=== PATIENT | female | born 1995 | race Hispanic/Latino ===

== ENCOUNTER 2018-03-16 15:54 | Inpatient (IN) | payer BC ==
[~2018-03-16] VITALS: Ht 154.9 cm; Wt 58.5 kg
[2018-03-16] MEDS ORDERED: SODIUM CHLORIDE 0.9% 1000ML 1,000 ML IV ONE (16:35)
[2018-03-16] MEDS ORDERED: KETOROLAC TROMETHAMINE 30MG/ML ONE (16:35)
[2018-03-16] MEDS ORDERED: ONDANSETRON HCL MDV 20ML 2 MG/ML VIAL ONE ×2 (16:35→22:13)
[2018-03-16 16:42] LABS: BASOPHILS % (AUTO) 0.7 % (0.0-5.0); EOSINOPHILS % (AUTO) 0.9 % (0.0-8.0); HEMATOCRIT 37.7 % (36-48); LYMPHOCYTES % (AUTO) 31.5 % (21.0-51.0); MEAN CORPUSCULAR HEMOGLOBIN 26.6 pg (27.0-33.0); MEAN CORPUSCULAR HGB CONC 32.9 g/dL (32.0-36.0); MEAN CORPUSCULAR VOLUME 80.8 fL (79-99); MONOCYTES % (AUTO) 5.9 % (3.0-13.0); PLATELET COUNT (AUTO) 196 K/uL (130-400); RED BLOOD CELL COUNT(AUTO) 4.66 MIL/uL (4.00-5.50); RED CELL DISTRIBUTION WIDTH 15.8 % (11.0-15.5); WHITE BLOOD COUNT (AUTO) 5.8 K/uL (4.8-10.8)
[2018-03-16 16:43] LABS: APPEARANCE,URINE Clear (CLEAR); BILIRUBIN,URINE Negative (NEGATIVE); COLOR,URINE Yellow (YELLOW); GLUCOSE, URINE (UA) Negative (NEGATIVE); HCG,QUAL RESULT NEGATIVE (NEGATIVE); KETONES,URINE 15 mg/dL (NEGATIVE); LEUKOCYTE ESTERASE ,URINE Negative (NEGATIVE); NITRATE,URINE Negative (NEGATIVE); OCCULT BLOOD,URINE Negative (NEGATIVE); PH,URINE 6.5 (5.0-8.0); PROTEIN,URINE Negative (NEGATIVE)
[2018-03-16 16:49] LABS: AMPHET/METH SCREEN,URINE NEGATIVE (NEGATIVE); BARBITURATE SCREEN, URINE NEGATIVE (NEGATIVE); BENZODIAZEPINES SCREEN,URINE NEGATIVE (NEGATIVE); CANNABINOID SCREEN,URINE POSITIVE (NEGATIVE); COCAINE SCREEN,URINE NEGATIVE (NEGATIVE); OPIATE SCREEN,URINE NEGATIVE (NEGATIVE); PHENCYCLIDINE SCREEN,URINE NEGATIVE (NEGATIVE)
[2018-03-16] MEDS ORDERED: CEFTRIAXONE SODIUM 1 GM ONE (17:07)
[2018-03-16 17:15] LABS: CREATININE 0.8 mg/dL (0.5-1.5); POTASSIUM 3.6 mmol/L (3.5-5.1)
[2018-03-16 17:20] LABS: ALBUMIN 4.2 g/dL (3.5-5.0); BILIRUBIN,TOTAL 0.5 mg/dL (0.2-1.0); TOTAL PROTEIN, SERUM 8.1 g/dL (6.0-8.3)
[2018-03-16] MEDS ORDERED: HYDROMORPHONE HCL 0.5 MG/0.5 ML ML ONE ×2 (20:16→22:14)
[2018-03-16 21:40] VITALS: BP 126/76
[2018-03-16] MEDS ORDERED: DICY20 PO (23:26)
[2018-03-16] MEDS ORDERED: PANT40TA PO (23:26)
[2018-03-16] MEDS ORDERED: METO5 PO (23:26)
[2018-03-16] MEDS ORDERED: ONDA4TAB4 PO (23:26)
[2018-03-17] VITALS (7 sets, daily range): BP systolic 108–122; BP diastolic 59–85
[2018-03-17] MEDS ORDERED: PHARMACY COMMUNICATION MISC SCH (02:00)
[2018-03-17] MEDS ORDERED: HYDROMORPHONE HCL 0.5 MG/0.5 ML ML IVP PRN (03:45)
[2018-03-17] MEDS: SODIUM CHLORIDE 0.9% 1000ML 1,000 ML IV SCH ×3 (03:48→19:59)
[2018-03-17] MEDS ORDERED: METRONIDAZOLE 500MG/100ML BAG 100 ML ONE (03:50)
[2018-03-17] MEDS: METRONIDAZOLE 500MG/100ML BAG 100 ML IV SCH ×3 (03:52→20:45)
[2018-03-17 05:26] LABS: HEMATOCRIT 30.9 % (36-48); MEAN CORPUSCULAR VOLUME 80.2 fL (79-99); NUCLEATED RED BLOOD CELLS 0.1 % (0.0-0.19); PLATELET COUNT (AUTO) 171 K/uL (130-400); RED BLOOD CELL COUNT(AUTO) 3.85 MIL/uL (4.00-5.50); RED CELL DISTRIBUTION WIDTH 15.7 % (11.0-15.5); WHITE BLOOD COUNT (AUTO) 4.4 K/uL (4.8-10.8)
[2018-03-17 05:44] LABS: ALBUMIN 3.3 g/dL (3.5-5.0); BILIRUBIN,TOTAL 0.4 mg/dL (0.2-1.0); CREATININE 0.7 mg/dL (0.5-1.5); POTASSIUM 3.7 mmol/L (3.5-5.1); TOTAL PROTEIN, SERUM 6.3 g/dL (6.0-8.3)
[2018-03-17] MEDS: ONDANSETRON HCL MDV 20ML 2 MG/ML VIAL IVP PRN ×2 (06:06→19:22)
[2018-03-17] MEDS: METOCLOPRAMIDE 5 MG TABLET PO SCH ×2 (08:45→08:50)
[2018-03-17] MEDS: PANTOPRAZOLE SODIUM 40 MG TABLET.DR PO SCH (08:45)
[2018-03-17] MEDS: MEPERIDINE HCL/PF 25 MG/0.5 ML AMPUL IVP PRN ×2 (09:11→11:25)
[2018-03-17] MEDS ORDERED: CEFTRIAXONE 1GM/D5W 50ML 50 ML IV SCH (10:30)
[2018-03-17] MEDS: LORAZEPAM 2 MG/ML 1 ML VIAL IVP PRN ×2 (10:36→19:58)
[2018-03-17 10:45] LABS: AMYLASE 42 U/L (25-115); LIPASE 58 U/L (114-286)
[2018-03-17] MEDS ORDERED: DOCUSATE SODIUM 100 MG CAP PO PRN (10:45)
[2018-03-17] MEDS ORDERED: LACTULOSE 20 GM/30 ML UDCUP PO PRN (10:45)
[2018-03-17] MEDS: CEFTRIAXONE SODIUM 1 GM IVP SCH (11:21)
[2018-03-17] MEDS ORDERED: IOPAMIDOL-370 75 ML VIAL IV ONE (11:33)
[2018-03-17] MEDS ORDERED: MEPERIDINE-PF 25 MG/ML SYG ONE (19:18)
[2018-03-18] MEDS: LORAZEPAM 2 MG/ML 1 ML VIAL IVP PRN (02:09)
[2018-03-18 04:00] VITALS: BP 100/58
[2018-03-18 05:04] LABS: HEMATOCRIT 30.6 % (36-48); MEAN CORPUSCULAR HEMOGLOBIN 26.8 pg (27.0-33.0); MEAN CORPUSCULAR HGB CONC 33.2 g/dL (32.0-36.0); MEAN CORPUSCULAR VOLUME 80.6 fL (79-99); NUCLEATED RED BLOOD CELLS 0.1 % (0.0-0.19); PLATELET COUNT (AUTO) 154 K/uL (130-400); RED CELL DISTRIBUTION WIDTH 15.6 % (11.0-15.5); WHITE BLOOD COUNT (AUTO) 3.8 K/uL (4.8-10.8)
[2018-03-18 05:12] LABS: CREATININE 0.7 mg/dL (0.5-1.5); POTASSIUM 3.8 mmol/L (3.5-5.1)
[2018-03-18] MEDS: METRONIDAZOLE 500MG/100ML BAG 100 ML IV SCH (05:33)
[2018-03-18] MEDS: SODIUM CHLORIDE 0.9% 1000ML 1,000 ML IV SCH ×3 (05:34→19:45)
[2018-03-18] MEDS ORDERED: DIATR MEGLU/DIATRIZOATE SODIUM 30 ML BOTTLE ONE (06:53)
[2018-03-18] MEDS: ONDANSETRON HCL MDV 20ML 2 MG/ML VIAL IVP PRN ×2 (07:15→19:36)
[2018-03-18 08:00] VITALS: BP 109/63
[2018-03-18] MEDS: PANTOPRAZOLE SODIUM 40 MG TABLET.DR PO SCH (08:42)
[2018-03-18] MEDS: CEFTRIAXONE SODIUM 1 GM IVP SCH (10:14)
[2018-03-18 11:56] VITALS: BP 101/69
[2018-03-18] MEDS ORDERED: CALDOLOR 800MG+NS 250ML 250 ML IV SCH (14:30)
[2018-03-18 16:00] VITALS: BP 104/54
[2018-03-18] MEDS: CALDOLOR 800MG+NS 250ML 250 ML IV PRN (18:00)
[2018-03-18 20:24] VITALS: BP 117/70
[2018-03-19] VITALS (7 sets, daily range): BP systolic 104–131; BP diastolic 61–80
[2018-03-19] MEDS: SODIUM CHLORIDE 0.9% 1000ML 1,000 ML IV SCH ×3 (04:15→22:16)
[2018-03-19] MEDS: CALDOLOR 800MG+NS 250ML 250 ML IV PRN (05:08)
[2018-03-19 06:00] LABS: HEMATOCRIT 32.4 % (36-48); MEAN CORPUSCULAR HEMOGLOBIN 28.2 pg (27.0-33.0); MEAN CORPUSCULAR VOLUME 80.5 fL (79-99); NUCLEATED RED BLOOD CELLS 0.1 % (0.0-0.19); PLATELET COUNT (AUTO) 191 K/uL (130-400); RED BLOOD CELL COUNT(AUTO) 4.03 MIL/uL (4.00-5.50); RED CELL DISTRIBUTION WIDTH 15.4 % (11.0-15.5)
[2018-03-19 06:15] LABS: CREATININE 0.7 mg/dL (0.5-1.5); POTASSIUM 3.7 mmol/L (3.5-5.1)
[2018-03-19] MEDS: PANTOPRAZOLE SODIUM 40 MG TABLET.DR PO SCH (08:46)
[2018-03-19] MEDS: ONDANSETRON HCL MDV 20ML 2 MG/ML VIAL IVP PRN ×2 (11:59→17:06)
[2018-03-19] MEDS: ACETAMINOPHEN 325 MG TAB PO PRN ×3 (11:59→22:16)
[2018-03-19] MEDS: DICYCLOMINE HCL 20 MG TAB PO PRN (17:12)
[2018-03-20] VITALS (27 sets, daily range): BP systolic 109–147; BP diastolic 47–85
[2018-03-20] MEDS: DICYCLOMINE HCL 20 MG TAB PO PRN ×2 (00:45→20:22)
[2018-03-20] MEDS: SODIUM CHLORIDE 0.9% 1000ML 1,000 ML IV SCH ×2 (03:13→06:59)
[2018-03-20] MEDS: PANTOPRAZOLE SODIUM 40 MG TABLET.DR PO SCH (09:00)
[2018-03-20] MEDS: ONDANSETRON HCL MDV 20ML 2 MG/ML VIAL IVP PRN ×3 (11:03→22:58)
[2018-03-20] MEDS ORDERED: CEFAZOLIN SODIUM 1 GM VIAL ONE (13:28)
[2018-03-20] MEDS ORDERED: GLYCOPYRROLATE 0.2 MG/ML 5 ML VIAL ONE (13:39)
[2018-03-20] MEDS ORDERED: LIDOCAINE PF 2% 5ML ABBOJECT ONE (13:39)
[2018-03-20] MEDS ORDERED: DEXAMETHASONE SOD PHOSPHATE 10MG/ML 1ML VIAL ONE (13:39)
[2018-03-20] MEDS ORDERED: PROPOFOL 10 MG/ML 20ML VIAL IV ONE (13:40)
[2018-03-20] MEDS ORDERED: FENTANYL CITRATE PF 50 MCG/1 ML 2ML VIAL ONE ×2 (13:40→14:17)
[2018-03-20] MEDS ORDERED: MIDAZOLAM HCL 1 MG/ML 2ML VIAL ONE (13:40)
[2018-03-20] MEDS ORDERED: EPINEPHRINE 1 MG/ML AMPULE ONE (15:00)
[2018-03-20] MEDS ORDERED: BUPIVACAINE/PF 0.5% 30ML VIAL ONE (15:00)
[2018-03-20] MEDS ORDERED: ESMOLOL HCL 10 MG/ML 10 ML VIAL ONE (15:50)
[2018-03-20] MEDS ORDERED: MEPERIDINE-PF 50 MG/ML SYG ONE ×2 (15:51→16:05)
[2018-03-20] MEDS ORDERED: LACTATED RINGERS 1000ML 1,000 ML IV ONE (17:16)
[2018-03-20] MEDS: LACTATED RINGERS 1000ML 1,000 ML IV SCH (17:20)
[2018-03-20] MEDS ORDERED: ACETAMINOPHEN 325 MG TAB PO PRN (17:30)
[2018-03-20] MEDS ORDERED: PHARMACY COMMUNICATION MISC SCH (18:00)
[2018-03-20] MEDS ORDERED: PROMETHAZINE HCL 25 MG/ML 1ML AMPULE IM ONE (18:10)
[2018-03-21] MEDS: TRAMADOL HCL 50 MG TABLET PO PRN (01:04)
[2018-03-21 03:35] VITALS: BP 117/72
[2018-03-21 07:47] VITALS: BP 110/82
[2018-03-21] MEDS: LACTATED RINGERS 1000ML 1,000 ML IV SCH ×2 (08:23→17:30)
[2018-03-21] MEDS: PANTOPRAZOLE SODIUM 40 MG TABLET.DR PO SCH (08:24)
[2018-03-21] MEDS: ACETAMINOPHEN 325 MG TAB PO PRN (08:25)
[2018-03-21] MEDS: DICYCLOMINE HCL 20 MG TAB PO PRN (08:25)
[2018-03-21] MEDS: ONDANSETRON HCL MDV 20ML 2 MG/ML VIAL IVP PRN ×2 (08:26→21:49)
[2018-03-21] MEDS ORDERED: PROCHLORPERAZINE EDISYLATE 10 MG/2 ML VIAL IV SCH (10:45)
[2018-03-21 11:20] VITALS: BP 127/87
[2018-03-21 15:45] VITALS: BP 122/65
[2018-03-21 19:35] VITALS: BP 91/56
[2018-03-21 20:33] VITALS: BP 140/87
[2018-03-21] MEDS ORDERED: KETOROLAC TROMETHAMINE 15MG/ML IV PRN (21:45)
[2018-03-21] MEDS: HYDROXYZINE HCL 25 MG TABLET PO SCH (23:07)
[2018-03-22 01:00] VITALS: BP 98/62
[2018-03-22] MEDS: DICYCLOMINE HCL 20 MG TAB PO PRN (02:42)
[2018-03-22 04:15] VITALS: BP 122/66
[2018-03-22] MEDS: ONDANSETRON HCL MDV 20ML 2 MG/ML VIAL IVP PRN ×2 (05:53→11:45)
[2018-03-22 08:00] VITALS: BP 128/78
[2018-03-22] MEDS: PROCHLORPERAZINE EDISYLATE 10 MG/2 ML VIAL IV PRN ×2 (08:12→20:24)
[2018-03-22] MEDS: LACTATED RINGERS 1000ML 1,000 ML IV SCH (08:18)
[2018-03-22 09:08] LABS: HEMATOCRIT 32.1 % (36-48); MEAN CORPUSCULAR VOLUME 79.6 fL (79-99); PLATELET COUNT (AUTO) 211 K/uL (130-400); RED BLOOD CELL COUNT(AUTO) 4.03 MIL/uL (4.00-5.50); RED CELL DISTRIBUTION WIDTH 16.2 % (11.0-15.5); WHITE BLOOD COUNT (AUTO) 7.8 K/uL (4.8-10.8)
[2018-03-22 09:25] LABS: CREATININE 0.7 mg/dL (0.5-1.5); POTASSIUM 3.3 mmol/L (3.5-5.1)
[2018-03-22] MEDS: PAROXETINE HCL 20 MG TABLET PO SCH (11:26)
[2018-03-22] MEDS: DULOXETINE HCL 30 MG CAP PO SCH ×2 (11:26→20:25)
[2018-03-22] MEDS: PANTOPRAZOLE SODIUM 40 MG TABLET.DR PO SCH (11:26)
[2018-03-22] MEDS: HYDROXYZINE HCL 25 MG TABLET PO SCH ×3 (11:27→20:25)
[2018-03-22 12:00] VITALS: BP 131/77
[2018-03-22] MEDS: TRAMADOL HCL 50 MG TABLET PO PRN ×2 (14:53→20:25)
[2018-03-22 16:00] VITALS: BP 153/82
[2018-03-22 20:30] VITALS: BP 114/71
[2018-03-23 04:03] VITALS: BP 113/70
[2018-03-23 04:21] LABS: HEMATOCRIT 29.8 % (36-48); MEAN CORPUSCULAR HEMOGLOBIN 28.1 pg (27.0-33.0); MEAN CORPUSCULAR HGB CONC 35.6 g/dL (32.0-36.0); PLATELET COUNT (AUTO) 218 K/uL (130-400); RED BLOOD CELL COUNT(AUTO) 3.77 MIL/uL (4.00-5.50); RED CELL DISTRIBUTION WIDTH 16.3 % (11.0-15.5); WHITE BLOOD COUNT (AUTO) 7.4 K/uL (4.8-10.8)
[2018-03-23 04:34] LABS: CREATININE 0.6 mg/dL (0.5-1.5); POTASSIUM 3.2 mmol/L (3.5-5.1)
[2018-03-23] MEDS: TRAMADOL HCL 50 MG TABLET PO PRN (06:06)
[2018-03-23] MEDS: PROCHLORPERAZINE EDISYLATE 10 MG/2 ML VIAL IV PRN ×2 (06:06→11:54)
[2018-03-23 07:30] VITALS: BP 105/69
[2018-03-23] MEDS: HYDROXYZINE HCL 25 MG TABLET PO SCH ×3 (09:22→22:06)
[2018-03-23] MEDS: DULOXETINE HCL 30 MG CAP PO SCH (09:22)
[2018-03-23] MEDS: PANTOPRAZOLE SODIUM 40 MG TABLET.DR PO SCH (09:22)
[2018-03-23] MEDS: PAROXETINE HCL 20 MG TABLET PO SCH (09:22)
[2018-03-23 11:00] VITALS: BP 134/93
[2018-03-23] MEDS: ONDANSETRON HCL MDV 20ML 2 MG/ML VIAL IVP PRN (12:51)
[2018-03-23] MEDS ORDERED: GADOBENATE DIMEGLUMINE 10 ML IV ONE (13:38)
[2018-03-23] MEDS: DICYCLOMINE HCL 20 MG TAB PO PRN (14:30)
[2018-03-23] MEDS: DEXAMETHASONE 4 MG TAB PO SCH ×2 (14:30→22:06)
[2018-03-23 16:00] VITALS: BP 139/74
[2018-03-23] MEDS ORDERED: PHARMACY COMMUNICATION MISC SCH (16:30)
[2018-03-23 19:00] VITALS: BP 137/89
[2018-03-23] MEDS ORDERED: ZOLPIDEM TARTRATE 5 MG TAB PO PRN (20:00)
[2018-03-24] MEDS: LACTATED RINGERS 1000ML 1,000 ML IV SCH ×2 (01:31→10:44)
[2018-03-24 04:00] VITALS: BP 118/70
[2018-03-24] MEDS: DEXAMETHASONE 4 MG TAB PO SCH ×3 (05:29→22:14)
[2018-03-24 08:10] VITALS: BP 117/67
[2018-03-24] MEDS: PANTOPRAZOLE SODIUM 40 MG TABLET.DR PO SCH (09:24)
[2018-03-24] MEDS: HYDROXYZINE HCL 25 MG TABLET PO SCH ×3 (09:25→20:57)
[2018-03-24] MEDS: PAROXETINE HCL 20 MG TABLET PO SCH (09:25)
[2018-03-24] MEDS ORDERED: MAGNESIUM HYDROXIDE 30 ML/UDCUP PO SCH (10:15)
[2018-03-24] MEDS ORDERED: LACTULOSE 20 GM/30 ML UDCUP PO SCH (10:15)
[2018-03-24] MEDS ORDERED: MAG HYDROX/AL HYDROX/SIMETH ES 30 ML SUSP UDCUP ONE (10:16)
[2018-03-24 12:05] VITALS: BP 156/86
[2018-03-24] MEDS: PROCHLORPERAZINE EDISYLATE 10 MG/2 ML VIAL IV PRN ×2 (12:30→22:13)
[2018-03-24 16:38] VITALS: BP 139/91
[2018-03-24 19:00] VITALS: BP 136/83
[2018-03-25] VITALS: BP 152/86
[2018-03-25] MEDS: LACTATED RINGERS 1000ML 1,000 ML IV SCH ×3 (02:27→20:56)
[2018-03-25 04:00] VITALS: BP 112/55
[2018-03-25] MEDS: DEXAMETHASONE 4 MG TAB PO SCH ×3 (06:31→20:55)
[2018-03-25] MEDS ORDERED: POTASSIUM CHLORIDE 10% ELIXIR 20 MEQ/15 ML UDCUP PO PRN (07:15)
[2018-03-25] MEDS ORDERED: POTASSIUM CHLORIDE 20 MEQ ERTAB PO PRN (07:15)
[2018-03-25 07:43] VITALS: BP 136/81
[2018-03-25] MEDS ORDERED: MAGNESIUM 2GM PREMIX 50ML 50 ML IV SCH (08:00)
[2018-03-25] MEDS: PAROXETINE HCL 20 MG TABLET PO SCH (08:41)
[2018-03-25] MEDS: HYDROXYZINE HCL 25 MG TABLET PO SCH ×3 (08:41→20:54)
[2018-03-25] MEDS: PANTOPRAZOLE SODIUM 40 MG TABLET.DR PO SCH (08:41)
[2018-03-25] MEDS: POTASSIUM CHLORIDE 20MEQ/100ML 100 ML IV PRN ×2 (08:42→13:42)
[2018-03-25] MEDS: LIDOCAINE HCL-MPF 1% 2ML VIAL IVP PRN ×2 (08:42→13:43)
[2018-03-25] MEDS: DICYCLOMINE HCL 20 MG TAB PO PRN ×2 (08:42→21:02)
[2018-03-25 11:49] VITALS: BP 150/78
[2018-03-25] MEDS: ONDANSETRON HCL MDV 20ML 2 MG/ML VIAL IVP PRN ×2 (13:38→21:02)
[2018-03-25 16:56] VITALS: BP 113/63
[2018-03-25 19:00] VITALS: BP 126/50
[2018-03-25] MEDS: ACETAMINOPHEN 325 MG TAB PO PRN (20:57)
[2018-03-26] VITALS: BP 158/80
[2018-03-26] MEDS: LACTATED RINGERS 1000ML 1,000 ML IV SCH ×2 (01:30→20:58)
[2018-03-26 04:00] VITALS: BP 140/90
[2018-03-26] MEDS: ONDANSETRON HCL MDV 20ML 2 MG/ML VIAL IVP PRN (04:55)
[2018-03-26] MEDS: DICYCLOMINE HCL 20 MG TAB PO PRN ×2 (04:55→12:49)
[2018-03-26] MEDS: DEXAMETHASONE 4 MG TAB PO SCH ×3 (06:21→20:58)
[2018-03-26 06:39] LABS: HEMATOCRIT 34.5 % (36-48); MEAN CORPUSCULAR HEMOGLOBIN 27.1 pg (27.0-33.0); MEAN CORPUSCULAR HGB CONC 33.9 g/dL (32.0-36.0); MEAN CORPUSCULAR VOLUME 79.8 fL (79-99); PLATELET COUNT (AUTO) 257 K/uL (130-400); RED BLOOD CELL COUNT(AUTO) 4.32 MIL/uL (4.00-5.50); RED CELL DISTRIBUTION WIDTH 16.6 % (11.0-15.5); WHITE BLOOD COUNT (AUTO) 6.3 K/uL (4.8-10.8)
[2018-03-26 07:00] LABS: BILIRUBIN,TOTAL 0.6 mg/dL (0.2-1.0); CREATININE 0.7 mg/dL (0.5-1.5); MAGNESIUM 1.9 mg/dL (1.80-2.40); POTASSIUM 3.3 mmol/L (3.5-5.1)
[2018-03-26 07:01] LABS: ALBUMIN 3.7 g/dL (3.5-5.0); TOTAL PROTEIN, SERUM 7.2 g/dL (6.0-8.3)
[2018-03-26 07:56] VITALS: BP 157/93
[2018-03-26] MEDS: HYDROXYZINE HCL 25 MG TABLET PO SCH ×3 (08:35→20:58)
[2018-03-26] MEDS: PANTOPRAZOLE SODIUM 40 MG TABLET.DR PO SCH (08:35)
[2018-03-26] MEDS: PAROXETINE HCL 20 MG TABLET PO SCH (08:35)
[2018-03-26 11:35] VITALS: BP 133/79
[2018-03-26 16:02] VITALS: BP 135/63
[2018-03-26 19:35] VITALS: BP 147/84
[2018-03-26] MEDS: LORAZEPAM 1 MG TABLET PO ONE (22:10)
[2018-03-27] MEDS: LACTATED RINGERS 1000ML 1,000 ML IV SCH (00:41)
[2018-03-27] MEDS: DICYCLOMINE HCL 20 MG TAB PO PRN (02:29)
[2018-03-27] MEDS ORDERED: LORAZEPAM 1 MG TABLET ONE (02:34)
[2018-03-27] MEDS: LORAZEPAM 1 MG TABLET PO ONE (02:36)
[2018-03-27] MEDS ORDERED: ONDANSETRON HCL 4 MG/2 ML VIAL ONE (03:40)
[2018-03-27 04:35] VITALS: BP 146/93
[2018-03-27 04:52] LABS: HEMATOCRIT 34.7 % (36-48); MEAN CORPUSCULAR HEMOGLOBIN 27.8 pg (27.0-33.0); MEAN CORPUSCULAR HGB CONC 35.3 g/dL (32.0-36.0); MEAN CORPUSCULAR VOLUME 78.7 fL (79-99); PLATELET COUNT (AUTO) 283 K/uL (130-400); RED CELL DISTRIBUTION WIDTH 16.3 % (11.0-15.5); WHITE BLOOD COUNT (AUTO) 7.1 K/uL (4.8-10.8)
[2018-03-27 04:56] LABS: CREATININE 0.7 mg/dL (0.5-1.5); POTASSIUM 3.4 mmol/L (3.5-5.1)
[2018-03-27] MEDS: DEXAMETHASONE 4 MG TAB PO SCH ×2 (05:07→13:49)
[2018-03-27] MEDS: PAROXETINE HCL 20 MG TABLET PO SCH (09:28)
[2018-03-27] MEDS: PANTOPRAZOLE SODIUM 40 MG TABLET.DR PO SCH (09:28)
[2018-03-27] MEDS: HYDROXYZINE HCL 25 MG TABLET PO SCH ×2 (09:28→13:49)
[2018-03-27 12:00] VITALS: BP 119/74
[2018-03-27] MEDS ORDERED: LORAZEPAM 2 MG/ML 1 ML VIAL IVP PRN (12:30)
[2018-03-27 16:00] VITALS: BP 117/74
== END 2018-03-27 18:40 | DRG 336 ==
LOC: EDH 15:54 → OBSVTOIN 17:45 → EDHIP 17:45 → 4AH 21:11 → 4BH 03-18 18:26 → 3AH 03-21 15:51
PROVIDERS: ADMIT Internal Medicine; ATTEND Internal Medicine
PROC: 0DNW4ZZ Release Peritoneum, Percutaneous Endoscopic Approach (ICD-10-PCS; principal; 2018-03-20 14:04)
DX: K52.9 Noninfective gastroenteritis and colitis, unspecified (principal); K56.609 Unspecified intestinal obstruction, unspecified as to partial versus complete obstruction; D70.9 Neutropenia, unspecified; R16.1 Splenomegaly, not elsewhere classified; K66.0 Peritoneal adhesions (postprocedural) (postinfection); Z72.0 Tobacco use; F32.9 Major depressive disorder, single episode, unspecified; D64.9 Anemia, unspecified; F41.9 Anxiety disorder, unspecified; I10 Essential (primary) hypertension; E87.6 Hypokalemia
CPT/HCPCS: 36415; 70450; 74018; 74176; 74178; 80048; 80053; 80305; 81003; 81025; 82150; 83690; 83735; 84132; 85025; 85027; 85651; 86140; A4218; A4606; A9577; J0171; J0690; J0696; J0780; J1100; J1170; J1741; J1885; J2001; J2060; J2175; J2250; J2405; J2550; J2704; J3010; J3475; J3480; J3490; J7030; J7120; J8540; Q9963; Q9967

== ENCOUNTER 2018-04-04 12:03 | Emergency (ER) | payer BC ==
[~2018-04-04 12:03] MED LIST: DICY20 PO; METO5 PO; ONDA4TAB4 PO; PANT40TA PO
[2018-04-04] MEDS ORDERED: LORAZEPAM 1 MG TABLET ONE (12:39)
[2018-04-04 12:53] LABS: BASOPHILS % (AUTO) 0.3 % (0.0-5.0); EOSINOPHILS % (AUTO) 0.7 % (0.0-8.0); HEMATOCRIT 36.2 % (36-48); LYMPHOCYTES % (AUTO) 10.2 % (21.0-51.0); MEAN CORPUSCULAR HEMOGLOBIN 26.8 pg (27.0-33.0); MEAN CORPUSCULAR HGB CONC 32.6 g/dL (32.0-36.0); MEAN CORPUSCULAR VOLUME 82.1 fL (79-99); MONOCYTES % (AUTO) 9.3 % (3.0-13.0); NEUTROPHILS % (AUTO) 79.5 % (40.0-77.0); PLATELET COUNT (AUTO) 217 K/uL (130-400); RED BLOOD CELL COUNT(AUTO) 4.41 MIL/uL (4.00-5.50); RED CELL DISTRIBUTION WIDTH 17.6 % (11.0-15.5); WHITE BLOOD COUNT (AUTO) 7.9 K/uL (4.8-10.8)
[2018-04-04 13:03] LABS: HCG,QUAL RESULT NEGATIVE (NEGATIVE)
[2018-04-04 13:06] LABS: CARBON DIOXIDE 23 mmol/L (21-32); CHLORIDE 106 mmol/L (101-111); CREATININE 0.7 mg/dL (0.5-1.5); GLOMERULAR FILTR. RATE CALC 111 mL/min (>60); GLUCOSE,RANDOM 99 mg/dL (70-105); POTASSIUM 3.2 mmol/L (3.5-5.1); SODIUM SERUM 140 mmol/L (136-145); UREA NITROGEN, BLOOD 6 mg/dL (7-18)
[2018-04-04 13:09] LABS: AMPHET/METH SCREEN,URINE NEGATIVE (NEGATIVE); BARBITURATE SCREEN, URINE NEGATIVE (NEGATIVE); BENZODIAZEPINES SCREEN,URINE NEGATIVE (NEGATIVE); CANNABINOID SCREEN,URINE POSITIVE (NEGATIVE); COCAINE SCREEN,URINE NEGATIVE (NEGATIVE); OPIATE SCREEN,URINE NEGATIVE (NEGATIVE); PHENCYCLIDINE SCREEN,URINE NEGATIVE (NEGATIVE)
[2018-04-04 13:10] LABS: ALANINE AMINOTRANSFERASE 56 U/L (12-78); ALBUMIN 3.5 g/dL (3.5-5.0); ALCOHOL, BLOOD < 3 mg/dL (0-10); ASPARTATE AMINOTRANSFERASE 27 U/L (10-37); BILIRUBIN,TOTAL 0.2 mg/dL (0.2-1.0); TOTAL PROTEIN, SERUM 6.9 g/dL (6.0-8.3)
[2018-04-04 13:15] LABS: ACETAMINOPHEN < 1 mcg/mL (10-30); SALICYLATE < 2.8 mg/dL (2.8-20.0)
[2018-04-04] MEDS ORDERED: POTASSIUM BICARB/CIT AC 25 MEQ TABLET.EFF ONE (16:56)
== END 2018-04-04 18:21 ==
LOC: EDH 12:03
DX: F41.9 Anxiety disorder, unspecified (principal); R45.851 Suicidal ideations; F32.9 Major depressive disorder, single episode, unspecified; Z72.0 Tobacco use; Z88.8 Allergy status to other drugs, medicaments and biological substances
CPT/HCPCS: 36415; 80053; 80305; 81025; 85025; 99285; G0480 ×2; G0481

== ENCOUNTER 2019-04-14 10:56 | Observation (INO) | payer BC, OTHER ==
[2019-04-14] MEDS ORDERED: ONDANSETRON HCL 4 MG/2 ML VIAL ONE ×3 (11:08→20:30)
[2019-04-14] MEDS ORDERED: SODIUM CHLORIDE 0.9% 1000ML 1,000 ML IV ONE (11:09)
[2019-04-14] MEDS ORDERED: FAMOTIDINE/PF 20 MG/2 ML VIAL IV ONE (11:37)
[2019-04-14 11:43] LABS: APPEARANCE,URINE Clear (CLEAR); BILIRUBIN,URINE Negative (NEGATIVE); COLOR,URINE Yellow (YELLOW); GLUCOSE, URINE (UA) Negative (NEGATIVE); KETONES,URINE 40 mg/dL (NEGATIVE); LEUKOCYTE ESTERASE ,URINE Trace (NEGATIVE); NITRATE,URINE Negative (NEGATIVE); OCCULT BLOOD,URINE Negative (NEGATIVE); PH,URINE >=9.0 (5.0-8.0); PROTEIN,URINE POS 1+ mg/dL (NEGATIVE)
[2019-04-14 11:44] LABS: HCG,QUAL RESULT NEGATIVE (NEGATIVE)
[2019-04-14 11:45] LABS: BASOPHILS % (AUTO) 0.2 % (0.0-5.0); EOSINOPHILS % (AUTO) 0.1 % (0.0-8.0); HEMATOCRIT 39.9 % (36-48); LYMPHOCYTES % (AUTO) 10.9 % (21.0-51.0); MEAN CORPUSCULAR HGB CONC 32.8 g/dL (32.0-36.0); NEUTROPHILS % (AUTO) 84.8 % (40.0-77.0); PLATELET COUNT (AUTO) 265 K/uL (130-400); RED BLOOD CELL COUNT(AUTO) 5.26 MIL/uL (4.00-5.50); RED CELL DISTRIBUTION WIDTH 17.1 % (11.0-15.5)
[2019-04-14 11:46] LABS: CREATININE 0.8 mg/dL (0.5-1.5); POTASSIUM 3.6 mmol/L (3.5-5.1)
[2019-04-14 11:50] LABS: ALBUMIN 4.5 g/dL (3.5-5.0); BILIRUBIN,TOTAL 0.6 mg/dL (0.2-1.0); TOTAL PROTEIN, SERUM 8.3 g/dL (6.0-8.3)
[2019-04-14 11:54] LABS: BACTERIA,URINE Few /HPF (None Seen); RBC,URINE 0-1 /HPF (0-1); WBC,URINE 0-1 /HPF (0-1)
[2019-04-14 11:55] LABS: SQUAMOUS EPITHELIAL CELL,UR 0-2 /HPF (0-2)
[2019-04-14] MEDS ORDERED: LORAZEPAM 2 MG/ML 1 ML VIAL ONE ×2 (12:02→17:46)
[2019-04-14 12:17] LABS: AMPHET/METH SCREEN,URINE NEGATIVE (NEGATIVE); BARBITURATE SCREEN, URINE NEGATIVE (NEGATIVE); BENZODIAZEPINES SCREEN,URINE NEGATIVE (NEGATIVE); CANNABINOID SCREEN,URINE POSITIVE (NEGATIVE); COCAINE SCREEN,URINE NEGATIVE (NEGATIVE); OPIATE SCREEN,URINE NEGATIVE (NEGATIVE); PHENCYCLIDINE SCREEN,URINE NEGATIVE (NEGATIVE)
[2019-04-14] MEDS ORDERED: IOHEXOL-350 75 ML VIAL IV ONE (14:07)
[2019-04-14] MEDS ORDERED: LACTATED RINGERS 1000ML 1,000 ML IV ONE (14:38)
[2019-04-14] MEDS ORDERED: POTASSIUM CHLORIDE 10% ELIXIR 20 MEQ/15 ML UDCUP PO PRN (16:00)
[2019-04-14] MEDS ORDERED: LIDOCAINE HCL-MPF 1% 2ML VIAL IJ PRN (16:00)
[2019-04-14] MEDS ORDERED: POTASSIUM CHLORIDE 20MEQ/100ML 100 ML IV PRN (16:00)
[2019-04-14] MEDS ORDERED: LORAZEPAM 2 MG/ML 1 ML VIAL IVP PRN (16:00)
[2019-04-14] MEDS ORDERED: POTASSIUM CHLORIDE 20 MEQ ERTAB PO PRN (16:00)
[2019-04-14] MEDS ORDERED: ONDANSETRON HCL 4 MG/2 ML VIAL IVP PRN (16:00)
[2019-04-14] MEDS ORDERED: LACTATED RINGERS 1000ML 1,000 ML IV SCH (16:00)
[2019-04-14] MEDS ORDERED: HEPARIN SODIUM 5000UNIT/ML 1ML VIAL ONE (20:30)
[2019-04-14] MEDS ORDERED: FAMOTIDINE/PF 20 MG/2 ML VIAL IV SCH (21:00)
[2019-04-15] MEDS ORDERED: LACTATED RINGERS 1000ML 1,000 ML IV ONE (07:32)
[2019-04-15 08:49] LABS: BASOPHILS % (AUTO) 0.3 % (0.0-5.0); HEMATOCRIT 33.7 % (36-48); LYMPHOCYTES % (AUTO) 14.8 % (21.0-51.0); MEAN CORPUSCULAR HEMOGLOBIN 24.6 pg (27.0-33.0); MEAN CORPUSCULAR HGB CONC 32.4 g/dL (32.0-36.0); MEAN CORPUSCULAR VOLUME 76.1 fL (79-99); NEUTROPHILS % (AUTO) 78.9 % (40.0-77.0); PLATELET COUNT (AUTO) 222 K/uL (130-400); RED BLOOD CELL COUNT(AUTO) 4.42 MIL/uL (4.00-5.50); RED CELL DISTRIBUTION WIDTH 17.8 % (11.0-15.5); WHITE BLOOD COUNT (AUTO) 10.1 K/uL (4.8-10.8)
[2019-04-15 08:59] LABS: CREATININE 0.8 mg/dL (0.5-1.5); POTASSIUM 3.7 mmol/L (3.5-5.1)
[2019-04-15 09:04] LABS: ALBUMIN 3.5 g/dL (3.5-5.0); BILIRUBIN,TOTAL 0.5 mg/dL (0.2-1.0); TOTAL PROTEIN, SERUM 6.7 g/dL (6.0-8.3)
[2019-04-15] MEDS ORDERED: HEPARIN SODIUM 5000UNIT/ML 1ML VIAL ONE (10:28)
== END 2019-04-15 14:26 | disposition home or self-care (01) ==
LOC: EDH 10:56 → EDHIP 14:08 → 3DH 19:46 → EDHIP 20:22
PROVIDERS: ADMIT Internal Medicine; ATTEND Internal Medicine
DX: E86.0 Dehydration (principal); F10.239 Alcohol dependence with withdrawal, unspecified; R11.2 Nausea with vomiting, unspecified; F41.9 Anxiety disorder, unspecified; F32.9 Major depressive disorder, single episode, unspecified; Z90.49 Acquired absence of other specified parts of digestive tract; Z79.899 Other long term (current) drug therapy
CPT/HCPCS: 36415 ×2; 74021; 74177; 80053 ×2; 80305; 81001; 81025; 82150; 83690 ×2; 85025 ×2; 99284; G0378 ×24; G0480; J1644 ×2; J2060 ×2; J2405 ×3; J3490; J7030; J7120 ×2; Q9967

== ENCOUNTER 2019-04-16 11:49 | Emergency (ER) | payer OTHER ==
[2019-04-16 12:43] LABS: BASOPHILS % (AUTO) 0.2 % (0.0-5.0); EOSINOPHILS % (AUTO) 0.1 % (0.0-8.0); LYMPHOCYTES % (AUTO) 11.6 % (21.0-51.0); MEAN CORPUSCULAR HGB CONC 32.7 g/dL (32.0-36.0); MEAN CORPUSCULAR VOLUME 76.5 fL (79-99); MONOCYTES % (AUTO) 3.9 % (3.0-13.0); NEUTROPHILS % (AUTO) 84.2 % (40.0-77.0); PLATELET COUNT (AUTO) 248 K/uL (130-400); RED BLOOD CELL COUNT(AUTO) 5.09 MIL/uL (4.00-5.50); RED CELL DISTRIBUTION WIDTH 17.3 % (11.0-15.5); WHITE BLOOD COUNT (AUTO) 10.1 K/uL (4.8-10.8)
[2019-04-16 12:48] LABS: APPEARANCE,URINE CLOUDY (CLEAR); BILIRUBIN,URINE SMALL (NEGATIVE); COLOR,URINE YELLOW (YELLOW); GLUCOSE, URINE (UA) NEGATIVE (NEGATIVE); KETONES,URINE 40 mg/dL (NEGATIVE); LEUKOCYTE ESTERASE ,URINE SMALL (NEGATIVE); NITRATE,URINE NEGATIVE (NEGATIVE); OCCULT BLOOD,URINE NEGATIVE (NEGATIVE); PROTEIN,URINE 30 mg/dL (NEGATIVE)
[2019-04-16 12:53] LABS: HCG,QUAL RESULT NEGATIVE (NEGATIVE)
[2019-04-16 12:57] LABS: AMPHET/METH SCREEN,URINE NEGATIVE (NEGATIVE); BARBITURATE SCREEN, URINE NEGATIVE (NEGATIVE); BENZODIAZEPINES SCREEN,URINE NEGATIVE (NEGATIVE); CANNABINOID SCREEN,URINE POSITIVE (NEGATIVE); COCAINE SCREEN,URINE NEGATIVE (NEGATIVE); OPIATE SCREEN,URINE NEGATIVE (NEGATIVE); PHENCYCLIDINE SCREEN,URINE NEGATIVE (NEGATIVE)
[2019-04-16 13:01] LABS: CREATININE 1.1 mg/dL (0.5-1.5); POTASSIUM 3.2 mmol/L (3.5-5.1)
[2019-04-16 13:02] LABS: BACTERIA,URINE Many /HPF (None Seen); RBC,URINE 0-1 /HPF (0-1)
[2019-04-16 13:03] LABS: SQUAMOUS EPITHELIAL CELL,UR Few /HPF (0-2)
[2019-04-16 13:06] LABS: ALBUMIN 4.2 g/dL (3.5-5.0); BILIRUBIN,TOTAL 0.6 mg/dL (0.2-1.0); TOTAL PROTEIN, SERUM 7.8 g/dL (6.0-8.3)
[2019-04-16] MEDS ORDERED: LORAZEPAM 2 MG/ML 1 ML VIAL ONE (13:33)
== END 2019-04-16 14:31 | disposition home or self-care (01) ==
LOC: EDH 11:49
DX: G43.A0 Cyclical vomiting, in migraine, not intractable (principal); F12.10 Cannabis abuse, uncomplicated; F41.9 Anxiety disorder, unspecified; F32.9 Major depressive disorder, single episode, unspecified; Z90.49 Acquired absence of other specified parts of digestive tract; Z88.5 Allergy status to narcotic agent; Z88.1 Allergy status to other antibiotic agents
CPT/HCPCS: 36415; 74176; 80053; 80305; 81001; 81025; 83690; 85025; 96374; 96375; 99285; J2060

== ENCOUNTER 2023-02-09 22:57 | Emergency (ER) | payer BC ==
[~2023-02-09] VITALS: Ht 149.9 cm; Wt 68.0 kg
[~2023-02-09 22:57] MED LIST changes: -DICY20 PO; +DICY20TA2 PO
[2023-02-09] MEDS ORDERED: METOCLOPRAMIDE 10 MG/2 ML VIAL ONE (23:05)
[2023-02-09] MEDS ORDERED: 0.9% NACL 500ML IV.SOLN 500 ML IV ONE (23:05)
[2023-02-09] MEDS ORDERED: METOCLOPRAMIDE 10 MG/2 ML VIAL IVP STA (23:07)
[2023-02-09] MEDS ORDERED: 0.9% NACL 500ML IV.SOLN 500 ML IV STA (23:07)
[2023-02-09 23:26] LABS: BASOPHILS % (AUTO) 0.3 % (0.0-5.0); EOSINOPHILS % (AUTO) 0.5 % (0.0-8.0); HEMATOCRIT 39.4 % (36-48); LYMPHOCYTES % (AUTO) 14.8 % (21.0-51.0); MEAN CORPUSCULAR HEMOGLOBIN 25.6 pg (27.0-33.0); MEAN CORPUSCULAR HGB CONC 31.2 g/dL (32.0-36.0); MEAN CORPUSCULAR VOLUME 82.1 fL (79-99); NEUTROPHILS % (AUTO) 80.3 % (40.0-77.0); PLATELET COUNT (AUTO) 166 K/uL (130-400); RED CELL DISTRIBUTION WIDTH 14.7 % (11.0-15.5); WHITE BLOOD COUNT (AUTO) 7.4 K/uL (4.8-10.8)
[2023-02-09] MEDS ORDERED: METOCLOPRAMIDE 10 MG/2 ML VIAL IVP ONE (23:30)
[2023-02-09] MEDS ORDERED: 0.9%NACL 1000ML 1,000 ML IV ONE (23:30)
[2023-02-09 23:36] LABS: CREATININE 0.9 mg/dL (0.5-1.5); POTASSIUM 3.3 mmol/L (3.5-5.1)
[2023-02-09 23:41] LABS: ALBUMIN 4.1 g/dL (3.5-5.0); TOTAL PROTEIN, SERUM 8.1 g/dL (6.0-8.3)
[2023-02-10] LABS: APPEARANCE,URINE CLEAR (CLEAR); BILIRUBIN,URINE NEGATIVE (NEGATIVE); COLOR,URINE LIGHT-YELLOW (YELLOW); GLUCOSE, URINE (UA) NEGATIVE (NEGATIVE); KETONES,URINE 5 mg/dL (NEGATIVE); LEUKOCYTE ESTERASE ,URINE 25 Leu/uL (NEGATIVE); NITRATE,URINE NEGATIVE (NEGATIVE); OCCULT BLOOD,URINE LARGE (NEGATIVE); PROTEIN,URINE 10 mg/dL (NEGATIVE); UROBILINOGEN,URINE 0.2 mg/dL (0.2-1.0)
[2023-02-10] MEDS ORDERED: DiphenhydrAMINE HCL 50 MG/ML VIAL IV ONE
[2023-02-10] MEDS ORDERED: PROCHLORPERAZINE 10MG/2ML INJ IV ONE
[2023-02-10 00:07] LABS: BACTERIA,URINE RARE /HPF (None Seen); MUCUS,URINE RARE LPF (None Seen); SQUAMOUS EPITHELIAL CELL,UR FEW /HPF (0-2)
[2023-02-10 00:11] LABS: AMPHET/METH SCREEN,URINE NEGATIVE (NEGATIVE); BARBITURATE SCREEN, URINE NEGATIVE (NEGATIVE); BENZODIAZEPINES SCREEN,URINE NEGATIVE (NEGATIVE); CANNABINOID SCREEN,URINE POSITIVE (NEGATIVE); COCAINE SCREEN,URINE NEGATIVE (NEGATIVE); OPIATE SCREEN,URINE NEGATIVE (NEGATIVE); PHENCYCLIDINE SCREEN,URINE NEGATIVE (NEGATIVE)
[2023-02-10] MEDS ORDERED: KETOROLAC 30MG VIAL (30MG/ML) ONE (00:15)
[2023-02-10] MEDS ORDERED: KETOROLAC 30MG VIAL (30MG/ML) IVP STA (00:18)
[2023-02-10] MEDS ORDERED: LORAZEPAM 2 MG/ML 1 ML VIAL IVP ONE (01:30)
[2023-02-10] MEDS ORDERED: COMP10 PO (01:59)
[2023-02-10] MEDS ORDERED: PROMETHAZINE HCL 25 MG/ML 1ML AMPULE IM ONE (02:23)
[2023-02-10] MEDS ORDERED: PROMETHAZINE HCL 25 MG/ML 1ML AMPULE IM STA (02:24)
[2023-02-10 02:30] VITALS: BP 118/54
== END 2023-02-10 02:34 ==
LOC: EDH 22:57
DX: F12.90 Cannabis use, unspecified, uncomplicated (principal); E86.0 Dehydration; F41.9 Anxiety disorder, unspecified; Z79.899 Other long term (current) drug therapy; Z88.5 Allergy status to narcotic agent; Z88.8 Allergy status to other drugs, medicaments and biological substances
CPT/HCPCS: 99284; 96374; 96361; 96375 ×2; 80053; 80305; 84703; 83690; 85025; 36415; 81001; 96372; J7040; J1200; J7030; J0780; J2765; J2550; J2060; J1885

== ENCOUNTER 2023-09-09 12:07 | Observation (INO) | payer OTHER ==
[~2023-09-09] VITALS: Ht 152.4 cm; Wt 79.4 kg
[~2023-09-09 12:07] MED LIST changes: +COMP10 PO
[2023-09-09] MEDS ORDERED: LORAZEPAM 2 MG/ML 1 ML VIAL IVP ONE (12:30)
[2023-09-09] MEDS ORDERED: PROMETHAZINE HCL 25 MG/ML 1ML AMPULE IM ONE (12:30)
[2023-09-09] MEDS ORDERED: PANTOPRAZOLE 40 MG/VIAL ONE (13:26)
[2023-09-09 13:27] LABS: BASOPHILS # (AUTO) 0.02 K/uL (0.00-0.20); BASOPHILS % (AUTO) 0.2 % (0.0-5.0); HEMATOCRIT 35.6 % (36-48); IMMATURE GRANULOCYTE ABSOLUTE 0.04 K/uL (0-1); LYMPHOCYTES # (AUTO) 0.6 K/uL (1.0-4.8); MEAN CORPUSCULAR HEMOGLOBIN 24.6 pg (27.0-33.0); MEAN CORPUSCULAR HGB CONC 31.2 g/dL (32.0-36.0); MEAN CORPUSCULAR VOLUME 78.8 fL (79-99); MONOCYTES # (AUTO) 0.3 K/uL (0.1-1.0); MONOCYTES % (AUTO) 3.5 % (3.0-13.0); NEUTROPHILS # (AUTO) 7.5 K/uL (1.8-7.7); NEUTROPHILS % (AUTO) 88.8 % (40.0-77.0); PLATELET COUNT (AUTO) 244 K/uL (130-400); RED BLOOD CELL COUNT(AUTO) 4.52 MIL/uL (4.00-5.50); RED CELL DISTRIBUTION WIDTH 15.3 % (11.0-15.5); WHITE BLOOD COUNT (AUTO) 8.4 K/uL (4.8-10.8)
[2023-09-09] MEDS ORDERED: PANTOPRAZOLE 40 MG/VIAL IVP ONE (13:30)
[2023-09-09 13:36] LABS: CREATININE 1.1 mg/dL (0.5-1.5); POTASSIUM 3.4 mmol/L (3.5-5.1)
[2023-09-09 13:40] LABS: ALBUMIN 4.1 g/dL (3.5-5.0); BILIRUBIN,TOTAL 0.4 mg/dL (0.2-1.0); MAGNESIUM 1.7 mg/dL (1.80-2.40)
[2023-09-09 13:43] LABS: BILIRUBIN,URINE NEGATIVE (NEGATIVE); COLOR,URINE YELLOW (YELLOW); GLUCOSE, URINE (UA) NEGATIVE (NEGATIVE); KETONES,URINE NEGATIVE (NEGATIVE); LEUKOCYTE ESTERASE ,URINE 25 Leu/uL (NEGATIVE); NITRATE,URINE NEGATIVE (NEGATIVE); OCCULT BLOOD,URINE NEGATIVE (NEGATIVE); PROTEIN,URINE 10 mg/dL (NEGATIVE); UROBILINOGEN,URINE 0.2 mg/dL (0.2-1.0)
[2023-09-09 13:46] LABS: ADD UA MICROSCOPIC YES; APPEARANCE,URINE HAZY (CLEAR)
[2023-09-09 13:50] LABS: BACTERIA,URINE RARE /HPF (None Seen); MUCUS,URINE RARE LPF (None Seen); RBC,URINE 0-1 /HPF (0-1); SQUAMOUS EPITHELIAL CELL,UR MANY /HPF (0-2)
[2023-09-09 14:00] LABS: AMPHET/METH SCREEN,URINE NEGATIVE (NEGATIVE); BARBITURATE SCREEN, URINE NEGATIVE (NEGATIVE); BENZODIAZEPINES SCREEN,URINE NEGATIVE (NEGATIVE); CANNABINOID SCREEN,URINE POSITIVE (NEGATIVE); COCAINE SCREEN,URINE NEGATIVE (NEGATIVE); OPIATE SCREEN,URINE NEGATIVE (NEGATIVE); PHENCYCLIDINE SCREEN,URINE NEGATIVE (NEGATIVE)
[2023-09-09] MEDS ORDERED: KETOROLAC 30MG VIAL (30MG/ML) ONE (14:25)
[2023-09-09] MEDS ORDERED: KETOROLAC 30MG VIAL (30MG/ML) IVP ONE (15:00)
[2023-09-09] MEDS: MAGNESIUM 2GM PREMIX 50ML 50 ML IV SCH (15:54)
[2023-09-09] MEDS ORDERED: DiphenhydrAMINE HCL 50 MG/ML VIAL ONE (16:11)
[2023-09-09] MEDS ORDERED: DiphenhydrAMINE HCL 50 MG/ML VIAL IV ONE (16:30)
[2023-09-09] MEDS: ALPRAZOLAM 0.5 MG TABLET PO PRN (20:16)
[2023-09-09] MEDS: 0.9%NACL 1000ML 1,000 ML IV SCH (20:16)
[2023-09-09] MEDS: FAMOTIDINE 20MG VIAL IV SCH (20:16)
[2023-09-09] MEDS: KETOROLAC 15MG/ML VIAL (15MG/ML) IV PRN (20:17)
[2023-09-09] MEDS ORDERED: MAGNESIUM 2GM PREMIX 50ML 50 ML IV PRN (20:30)
[2023-09-09] MEDS ORDERED: CEFTRIAXONE 1G VIAL IV SCH (20:30)
[2023-09-09] MEDS ORDERED: POTASSIUM CHLORIDE 20MEQ/100ML 100 ML IV PRN (20:30)
[2023-09-09] MEDS ORDERED: ONDANSETRON 4MG INJ IV PRN (20:30)
[2023-09-09 22:45] VITALS: BP 129/77; PULSE 61; RESP 18
[2023-09-09] MEDS ORDERED: BUPR-113 PO (23:12)
[2023-09-09] MEDS ORDERED: HYD50 PO (23:12)
[2023-09-09] MEDS ORDERED: QUET100T34 PO (23:12)
[2023-09-10] MEDS: KETOROLAC 15MG/ML VIAL (15MG/ML) IV PRN ×3 (03:20→18:13)
[2023-09-10 04:13] VITALS: BP 117/70; PULSE 51; RESP 18
[2023-09-10 04:45] LABS: BASOPHILS # (AUTO) 0.02 K/uL (0.00-0.20); BASOPHILS % (AUTO) 0.3 % (0.0-5.0); EOSINOPHILS # (AUTO) 0.03 K/uL (0.00-0.70); EOSINOPHILS % (AUTO) 0.4 % (0.0-8.0); IMMATURE GRANULOCYTE ABSOLUTE 0.02 K/uL (0-1); LYMPHOCYTES # (AUTO) 2.1 K/uL (1.0-4.8); LYMPHOCYTES % (AUTO) 30.2 % (21.0-51.0); MEAN CORPUSCULAR HGB CONC 31.6 g/dL (32.0-36.0); MEAN CORPUSCULAR VOLUME 79.2 fL (79-99); MONOCYTES # (AUTO) 0.6 K/uL (0.1-1.0); MONOCYTES % (AUTO) 7.8 % (3.0-13.0); NEUTROPHILS # (AUTO) 4.3 K/uL (1.8-7.7); PLATELET COUNT (AUTO) 235 K/uL (130-400); RED BLOOD CELL COUNT(AUTO) 4.04 MIL/uL (4.00-5.50); RED CELL DISTRIBUTION WIDTH 15.4 % (11.0-15.5)
[2023-09-10 04:55] LABS: INR 0.97 (0.85-1.15); PROTHROMBIN TIME 11.3 SEC (9.6-11.6)
[2023-09-10 04:57] LABS: PARTIAL THROMBOPLASTIN TIME 25.4 SEC (26.3-35.5)
[2023-09-10 05:03] LABS: ALBUMIN 3.3 g/dL (3.5-5.0); BILIRUBIN,TOTAL 0.3 mg/dL (0.2-1.0); CREATININE 0.8 mg/dL (0.5-1.5); MAGNESIUM 2.2 mg/dL (1.80-2.40); POTASSIUM 3.5 mmol/L (3.5-5.1); TOTAL PROTEIN, SERUM 6.9 g/dL (6.0-8.3)
[2023-09-10] MEDS ORDERED: DICYCLOMINE HCL 20 MG TAB PO PRN (07:00)
[2023-09-10] MEDS ORDERED: HYDROXYZINE 25 MG TABLET PO PRN (07:00)
[2023-09-10 08:00] VITALS: BP 118/63; PULSE 62; RESP 18
[2023-09-10] MEDS: FAMOTIDINE 20MG VIAL IV SCH ×2 (10:25→20:48)
[2023-09-10] MEDS: BUPROPION HCL 150 MG TABLET.SA PO SCH ×2 (10:25→20:47)
[2023-09-10] MEDS: ALPRAZOLAM 0.5 MG TABLET PO PRN ×2 (10:28→22:23)
[2023-09-10 12:00] VITALS: BP 131/78; PULSE 62; RESP 18
[2023-09-10] MEDS: 0.9%NACL 1000ML 1,000 ML IV SCH (14:47)
[2023-09-10] MEDS ORDERED: DIPHENHYDRAMINE HCL 25 MG CAPSULE PO PRN (15:00)
[2023-09-10 15:54] VITALS: BP 121/77; PULSE 59; RESP 18
[2023-09-10 19:00] VITALS: BP 123/69; PULSE 58; RESP 18
[2023-09-10] MEDS: QUETIAPINE FUMARATE 25 MG TAB PO SCH (20:47)
[2023-09-10] MEDS: CEFTRIAXONE 2GM VIAL IVPB SCH (20:47)
[2023-09-10] MEDS: HYDROXYZINE 25 MG TABLET PO SCH (20:48)
[2023-09-10 23:00] VITALS: BP 110/61; PULSE 64; RESP 16
[2023-09-11] VITALS (7 sets, daily range): BP systolic 106–151; BP diastolic 56–87; PULSE 57–77; RESP 18–20; O2SAT 100
[2023-09-11] MEDS: 0.9%NACL 1000ML 1,000 ML IV SCH ×2 (05:36→08:44)
[2023-09-11] MEDS: BUPROPION HCL 150 MG TABLET.SA PO SCH ×2 (08:44→20:43)
[2023-09-11] MEDS: HYDROXYZINE 25 MG TABLET PO SCH ×3 (08:44→20:43)
[2023-09-11] MEDS: FAMOTIDINE 20MG VIAL IV SCH ×2 (08:44→20:43)
[2023-09-11] MEDS: KETOROLAC 15MG/ML VIAL (15MG/ML) IV PRN (11:12)
[2023-09-11] MEDS ORDERED: HYDROCODONE/ACETAMINOPHEN 10/325 MG TAB ONE (13:51)
[2023-09-11] MEDS ORDERED: HYDROCODONE/ACETAMINOPHEN 10/325 MG TAB PO PRN (14:00)
[2023-09-11] MEDS: HEPARIN 5,000 UNIT VIAL SQ SCH ×2 (14:24→22:28)
[2023-09-11] MEDS: CEFTRIAXONE 2GM VIAL IVPB SCH (20:42)
[2023-09-11] MEDS: QUETIAPINE FUMARATE 25 MG TAB PO SCH (20:43)
[2023-09-11] MEDS: HYDROCODONE/ACETAMINOPHEN 5/325 MG TAB PO PRN (22:25)
[2023-09-12] MEDS: 0.9%NACL 1000ML 1,000 ML IV SCH (01:50)
[2023-09-12 03:20] VITALS: BP 121/61; PULSE 69; RESP 20
[2023-09-12] MEDS: HEPARIN 5,000 UNIT VIAL SQ SCH ×2 (05:04→14:00)
[2023-09-12 05:20] LABS: BASOPHILS # (AUTO) 0.03 K/uL (0.00-0.20); BASOPHILS % (AUTO) 0.5 % (0.0-5.0); EOSINOPHILS # (AUTO) 0.12 K/uL (0.00-0.70); EOSINOPHILS % (AUTO) 2.1 % (0.0-8.0); HEMATOCRIT 31.4 % (36-48); IMMATURE GRANULOCYTE ABSOLUTE 0.02 K/uL (0-1); LYMPHOCYTES # (AUTO) 2.2 K/uL (1.0-4.8); LYMPHOCYTES % (AUTO) 39.1 % (21.0-51.0); MEAN CORPUSCULAR HEMOGLOBIN 24.6 pg (27.0-33.0); MEAN CORPUSCULAR HGB CONC 30.9 g/dL (32.0-36.0); MEAN CORPUSCULAR VOLUME 79.7 fL (79-99); MONOCYTES # (AUTO) 0.4 K/uL (0.1-1.0); MONOCYTES % (AUTO) 7.3 % (3.0-13.0); NEUTROPHILS # (AUTO) 2.9 K/uL (1.8-7.7); NEUTROPHILS % (AUTO) 50.7 % (40.0-77.0); PLATELET COUNT (AUTO) 192 K/uL (130-400); RED BLOOD CELL COUNT(AUTO) 3.94 MIL/uL (4.00-5.50); RED CELL DISTRIBUTION WIDTH 15.4 % (11.0-15.5); WHITE BLOOD COUNT (AUTO) 5.7 K/uL (4.8-10.8)
[2023-09-12 05:30] LABS: CREATININE 0.8 mg/dL (0.5-1.5); MAGNESIUM 1.6 mg/dL (1.80-2.40); PHOSPHORUS 4.1 mg/dL (2.5-4.9); POTASSIUM 3.2 mmol/L (3.5-5.1)
[2023-09-12 08:00] VITALS: BP 118/78; PULSE 63; RESP 18; O2SAT 96
[2023-09-12] MEDS: BUPROPION HCL 150 MG TABLET.SA PO SCH (08:33)
[2023-09-12] MEDS: HYDROXYZINE 25 MG TABLET PO SCH ×2 (08:33→14:00)
[2023-09-12] MEDS: FAMOTIDINE 20MG VIAL IV SCH (08:33)
[2023-09-12 11:27] VITALS: BP 117/66; PULSE 67; RESP 18
[2023-09-12] MEDS: HYDROCODONE/ACETAMINOPHEN 5/325 MG TAB PO PRN (12:20)
[2023-09-12] MEDS: MAGNESIUM 2GM PREMIX 50ML 50 ML IV SCH (14:12)
[2023-09-12] MEDS ORDERED: POTASSIUM CHLORIDE 10% ELIXIR 20 MEQ/15 ML UDCUP PO PRN (14:30)
[2023-09-12] MEDS ORDERED: KCL 20 MEQ ERTAB PO PRN (14:30)
[2023-09-12] MEDS ORDERED: POTASSIUM CHLORIDE 20MEQ/100ML 100 ML IV PRN (14:30)
== END 2023-09-12 17:00 | disposition home or self-care (01) ==
LOC: EDH 12:07 → EDHIP 12:08 → 3BH 22:29
PROVIDERS: ADMIT Hospitalist; ATTEND Hospitalist
DX: R10.31 Right lower quadrant pain (principal); N39.0 Urinary tract infection, site not specified; E87.6 Hypokalemia; F12.90 Cannabis use, unspecified, uncomplicated; F41.9 Anxiety disorder, unspecified; F31.9 Bipolar disorder, unspecified; K31.84 Gastroparesis; K42.9 Umbilical hernia without obstruction or gangrene; E86.0 Dehydration; N20.0 Calculus of kidney; E66.9 Obesity, unspecified; F17.210 Nicotine dependence, cigarettes, uncomplicated; Z90.89 Acquired absence of other organs; Z88.8 Allergy status to other drugs, medicaments and biological substances; Z88.5 Allergy status to narcotic agent; Z68.34 Body mass index [BMI] 34.0-34.9, adult; Z79.899 Other long term (current) drug therapy
CPT/HCPCS: 96376 ×4; 96372 ×2; 96365; 96375; 99285; 83735 ×3; 80053 ×2; 80305; 83690; 85025 ×3; 87088 ×2; 81001; 81025; 36415 ×3; 74176; 96361 ×4; 85610; 85730; 87797; 87486; 82306; 76770; 96366; 96367; 84100; 80048; G0378 ×68; J3475 ×2; J1200; J3490 ×6; J7030; J2550; J0696 ×3; J2405; J2060; J3480; J1885 ×6; C9113; Q0163; J1644 ×2